=== PATIENT | female | born 1965 | race Caucasian/White ===

== ENCOUNTER 2025-04-14 13:11 | Emergency (ER) | payer BC ==
[~2025-04-14] VITALS: Ht 160 cm; Wt 3.7 kg
[2025-04-14 14:36] LABS: BASO # 0.0 10*3/uL (0.0-0.1); BASO % 0.6 % (0.0-1.0); EOS # 0.2 10*3/uL (0.0-0.4); EOS % 2.1 % (1.0-4.0); MEAN CELL VOLUME 90.8 fl (81.0-99.0); MEAN CORPUSCULAR HGB 30.6 pg (27.0-31.0); MEAN PLATELET VOLUME 9.6 fl (9.6-12.3); MONO # 0.4 10*3/uL (0.1-1.0); MONO % 4.9 % (3.0-9.0); NEUT # 4.8 10*3/uL (2.3-7.9); NEUT % 67.1 % (47.0-73.0); NUCLEATED RED BLOOD CELL 0.0 % (0.0-0.0); NUCLEATED RED BLOOD CELL 0.0 10*3/uL (0.0-0.0); PLATELET COUNT AUTOMATED 189 10*3/uL (130-400); RED CELL DISTRI WIDTH 12.2 % (0-14.5)
[2025-04-14 14:59] LABS: BUN 14 mg/dl (9-23); CPK 53 U/L (34-171); SGPT/ALT 35 U/L (5-49)
[2025-04-14 15:10] LABS: BILIRUBIN Negative (Negative); BLOOD Negative (Negative); CLARITY Clear (Clear); COLOR Yellow (Yellow); KETONE Negative (Negative); LEUKO ESTERASE Negative (Negative); NITRITE Negative (Negative); PH 6.5 (4.5-8.0); SPECIFIC GRAVITY <= 1.005 (1.001-1.030); UROBILINOGEN 0.2 E.U./dl (0.0-1.0)
[2025-04-14 15:26] LABS: WBC 0-2 wbc/hpf (0-5)
[2025-04-14] MEDS ORDERED: METHOCARBAMOL750 M1 PO (16:43)
[2025-04-14] MEDS ORDERED: PREDNISONE20 M1 PO (16:43)
[2025-04-14] MEDS ORDERED: VIBRAMYCIN100 MG PO (16:43)
[2025-04-14] MEDS ORDERED: PREDNISONE50 MG PO (16:45)
== END 2025-04-14 16:50 | disposition home or self-care (01) ==
LOC: ED 13:11
PROVIDERS: Emergency Medicine
DX: S16.1XXA Strain of muscle, fascia and tendon at neck level, initial encounter (principal); S29.012A Strain of muscle and tendon of back wall of thorax, initial encounter; M25.50 Pain in unspecified joint; R20.2 Paresthesia of skin; Z88.0 Allergy status to penicillin; Z88.1 Allergy status to other antibiotic agents; Z88.2 Allergy status to sulfonamides; X58.XXXA Exposure to other specified factors, initial encounter; Y93.89 Activity, other specified; Y92.89 Other specified places as the place of occurrence of the external cause; Y99.8 Other external cause status